=== PATIENT | male | born 1945 | race Caucasian/White ===

== ENCOUNTER 2020-02-17 16:26 | Inpatient (IN) ==
[2020-02-17 17:23] LABS: BASO# 0.01 X1000 (0.0-0.2); BASO% 0.1 % (0.0-0.8); EOS# 0.17 X1000 (0.0-0.7); EOS% 1.2 % (0.0-10.0); HEMATOCRIT 39.5 % (42.0-52.0); HEMOGLOBIN 13.2 g/dL (14.0-18.0); IMM GRAN# 0.04 X1000 (0.0-0.04); IMM GRAN% 0.3 % (0.0-0.5); LYMPH# 1.26 X1000 (1.2-3.4); LYMPH% 9.2 % (20.5-51.1); MCH 30.3 PG (27-31); MCHC 33.4 g/dL (33-37); MCV 90.8 FL (81-99); MONO# 0.64 X1000 (0.11-0.59); MONO% 4.7 % (1.7-9.3); MPV 11.4 FL (7.4-10.4); NEUT# 11.51 X1000 (1.4-6.5); NEUT% 84.5 % (42.2-75.2); PLT 157 X1000 (130-400); RBC 4.35 XMIL (4.7-6.1); RDW 14.9 % (11.5-14.5); WBC 13.63 X1000 (4.8-10.8)
[2020-02-17 17:26] LABS: INR 1.06; PROTIME 13.9 Seconds (11.0-16.0)
[2020-02-17 17:35] LABS: AGAP 12; ALB/GLOB RATIO 1.7; ALKALINE PHOSPHATASE 73 U/L (32-122); BUN 15 mg/dL (8-22); CHLORIDE 96 mmol/L (98-107); CK PROFILE 17 U/L (24-204); COSMO 274; CREATININE 0.9 mg/dL (0.7-1.2); ESTIMATED GFR > 60; GLUCOSE 229 mg/dL (70-104); GOT 12 U/L (10-34); GPT 13 U/L (10-44); POTASSIUM 3.8 mmol/L (3.5-5.1); SODIUM 133 mmol/L (136-145); TCO2 25 mmol/L (25-35); TOTAL BILIRUBIN 0.64 mg/dL (0.20-1.00); TOTAL PROTEIN 6.4 g/dL (6.3-8.3)
[2020-02-17] MEDS ORDERED: LEVAQUIN 750 MG/D5W 750 MG/150 ML IVPB IV ONE (18:04)
[2020-02-17] MEDS ORDERED: NS 1,000 ML IV ONE (18:04)
[2020-02-17 18:22] LABS: URINE SOURCE CLEAN CATCH
[2020-02-17 18:27] LABS: BILIRUBIN URINE NEGATIVE (NEGATIVE); BLOOD URINE NEGATIVE (NEGATIVE); COLOR YELLOW; GLUCOSE URINE NEGATIVE (NEGATIVE); KETONE URINE TRACE mg/dL (NEGATIVE); LEUKOCYTES URINE NEGATIVE (NEGATIVE); NITRITE URINE NEGATIVE (NEGATIVE); PROTEIN URINE 30 mg/dL (NEGATIVE); SP GRAVITY URINE 1.033; TURBIDITY URINE HAZY (CLEAR); UROBILINOGEN URINE 2 mg/dL (NORMAL)
[2020-02-17 18:32] LABS: UR EPITHELIAL CELLS <10 /HPF (<10); URINE BACTERIA NEGATIVE /HPF; URINE RBC <10 /HPF (<10); URINE WBC 20-40 /HPF (<10)
[2020-02-17 18:36] LABS: URINE CASTS NONE SEEN; URINE CRYSTALS CA OXALATE PRESENT; URINE YEAST NONE SEEN
--- NOTE | 2020-02-17 18:40 | Diag Imaging Result Doc PS360 ---
EXAM: CHEST-1 VIEW - 02/17/2020 HISTORY: SOB/CP TECHNIQUE: Portable chest one view COMPARISON: None. FINDINGS: Heart size appears mildly enlarged. There is perihilar infiltrate at the left upper lobe. There is mild nodularity at the lateral right upper lobe, but this may relate to old rib fracture deformities with adjacent pulmonary pleural scarring. The remainder the lungs appear grossly clear. There is an apparent tiny left pleural effusion. There is no evidence of pneumothorax. IMPRESSION: Mild cardiomegaly. Left upper lobe infiltrate compatible with pneumonia. Mild nodularity at lateral right upper lobe region, possibly related to scarring associated with old rib fracture deformities. Electronically signed by Allan Lewis 02/17/2020 6:37 PM
--- NOTE | 2020-02-17 19:30 | PROVIDER DOCUMENTATION ---
This chart was entered by Isidra Lorenz Scribe, acting as scribe for Dipak Moreno CRNP. HPI-General Adult - General Chief Complaint: Shortness of Breath Stated Complaint: CHEST PAIN X 2 DAYS SOB Time Seen by Provider: 02/17/20 16:55 Source: patient, EMS Allergies/Adverse Reactions: Patient Allergies Allergy/AdvReac Type Severity Reaction Status Date / Time Penicillins Allergy ANAPHYLAXIS Verified 02/17/20 17:04 - History of Present Illness -Gen Adult Nature of Presenting Problems: Pt is a 74 yom brought into the ED by EMS with c/o of SOB and sternal chest pain with fever that started 2 days ago. Pt went to [facility] and they called EMS. EMS reports that they were not told if a COVID-19 test was preformed. Pt's initial temperature with EMS was 99.4 and was 100.4 in ED triage. Pt states that he and his have been sheltering in place at home for 2 months but earlier this week they went driving by and waving to friends but stayed in the car. Pt reported that his has had to go to the Dr's office several times recently. Pt is hard of hearing. Pt states that nothing has tasted or smelled right for 2 days. Pt is alert and nontoxic in appearance. Location of Pain/Injury: reports: chest (sternal mild) Pain Radiation: reports: no radiation Quality of Pain: reports: dull Severity: reports: mild Onset/Duration: reports: abrupt, 2 days ago Timing: reports: still present, getting worse Context/Activities at Onset: reports: light activity Modifying Factors: worse with: movement Associated Symptoms: reports: chest pain (sternal), fever/chills, other (Pt re ports that nothing tastes or smells right.) Similar Symptoms Previously?: No Recently seen or treated by another doctor?: No Review of Systems - Adult - REVIEW OF SYSTEMS - ADULT Constitutional: reports: see HPI, fever Eyes: reports: no symptoms reported Ears, Nose, Mouth & Throat: reports: see HPI, hearing loss Cardiovascular: reports: see HPI, chest pain (sternal). denies: syncope Respiratory: reports: see HPI, shortness of breath Gastrointestinal: denies: abdominal pain, diarrhea, nausea, vomiting Genitourinary: reports: no symptoms reported Musculoskeletal: reports: no symptoms reported Integumentary: reports: no symptoms reported Neurological: reports: no symptoms reported Psychiatric: reports: no symptoms reported Endocrine: reports: no symptoms reported Hematologic/Lymphatic: reports: no symptoms reported Allergic/Immunologic: reports: no symptoms reported All Other Systems: Reviewed and Negative Past History - Adult - PAST MEDICAL HISTORY-ADULT Review of Records: reports: Old Records Reviewed, Nursing Assessment Review, Medications Reviewed, Social history reviewed & non-contributory. Major Childhood Illnesses: reports: denies history Cardiovascular: reports: HTN Respiratory: reports: denies history Gastrointestinal: reports: denies history Obstetrical/Gynecological: reports: denies history Genitourinary: reports: denies history Musculoskeletal: reports: denies history Neurological: reports: denies history Endocrine/Immune: reports: thyroid disorder Other Conditions: reports: denies history - IMMUNIZATION STATUS Childhood Immunizations: See Nurse Assessment Flu Vaccine: See Nurse Assessment - FAMILY HISTORY Family History: reviewed, not pertinent - SOCIAL HISTORY Smoking: denies Substance Use: denies Living Situation: family () Physical Exam-General - PHYSICAL EXAM-ADULT Initial Vital Signs Reviewed: Yes (Temp 99.8; HR 100; Resp 26; O2 94 RA) - CONSTITUTIONAL General Appearance: alert, mild distress - EYES Eyes: PERRL/EOMI, pink conjunctivae - HEAD, EARS, NOSE, MOUTH & THROAT HENMT: normocephalic/atraumatic, moist mucous membranes, other (Alcohol swab was presented pt stated it did not smell like alcohol but something bad.) - NECK Neck: non-tender, full range of motion, supple - RESPIRATORY Respiratory: decreased breath sounds (left), wheezing (Right Lower Lobe mild) - CARDIOVASCULAR Cardiovascular: normal peripheral pulses, tachycardia - GASTROINTESTINAL (ABDOMEN) Abdominal Exam: normal bowel sounds, non tender, soft - LYMPHATIC Lymphatic: no adenopathy - MUSCULOSKELETAL Back Exam: normal inspection, no CVA tenderness, no vertebral tenderness Extremity: normal range of motion, non-tender, normal gait - SKIN Integumentary: normal turgor, warm/dry - NEUROLOGIC Neurologic: grossly normal - PSYCHIATRIC Psych/Mental Status: normal thought content, normal thought process, oriented x 3 Progress - PLAN OF CARE/RESULTS Progress/Plan/Lab Results: Vital Signs - 8 hr 02/17/20 17:01 Temperature 99.8 F H Pulse Rate 100 H Respiratory Rate 26 H Blood Pressure 129/67 O2 Sat by Pulse Oximetry 94 L 02/17/20 16:54 Influenza Screen - Final Nasopharyngeal Laboratory Results - last 24 hr 02/17/20 02/17/20 02/17/20 16:51 16:51 16:51 WBC RBC Hgb Hct MCV MCH MCHC RDW Std Deviation Plt Count MPV Immature Gran % (Auto) Neut % (Auto) Lymph % (Auto) [place] % (Auto) Eos % (Auto) Baso % (Auto) Immature Gran # (Auto) Neut # (Auto) Lymph # (Auto) [place] # (Auto) Eos # (Auto) Baso # (Auto) PT INR PTT (Actin FS) Sodium 133 L Potassium 3.8 Chloride 96 L Carbon Dioxide 25 Anion Gap 12 BUN 15 Creatinine 0.9 Estimated GFR/1.73 m2 > 60 BUN/Creatinine Ratio 17 Glucose 229 H Calculated Osmolality 274 Calcium 9.0 Total Bilirubin 0.64 AST 12 ALT 13 Alkaline Phosphatase 73 Creatine Kinase 17 L Troponin T High Sens 8 Total Protein 6.4 Albumin 4.0 Globulin 2.4 Albumin/Globulin Ratio 1.7 Plasma Lactate 2.1 02/17/20 02/17/20 16:51 16:51 WBC 13.63 H RBC 4.35 L Hgb 13.2 L Hct 39.5 L MCV 90.8 MCH 30.3 MCHC 33.4 RDW Std Deviation 14.9 H Plt Count 157 MPV 11.4 H Immature Gran % (Auto) 0.3 Neut % (Auto) 84.5 H Lymph % (Auto) 9.2 L Zapata % (Auto) 4.7 Eos % (Auto) 1.2 Baso % (Auto) 0.1 Immature Gran # (Auto) 0.04 Neut # (Auto) 11.51 H Lymph # (Auto) 1.26 [place]ata # (Auto) 0.64 H Eos # (Auto) 0.17 Baso # (Auto) 0.01 PT 13.9 INR 1.06 PTT (Actin FS) 33.0 Sodium Potassium Chloride Carbon Dioxide Anion Gap BUN Creatinine Estimated GFR/1.73 m2 BUN/Creatinine Ratio Glucose Calculated Osmolality Calcium Total Bilirubin AST ALT Alkaline Phosphatase Creatine Kinase Troponin T High Sens Total Protein Albumin Globulin Albumin/Globulin Ratio Plasma Lactate Orders Category Date Time Status Cardiac Monitoring NOW Care 02/17/20 17:04 Active IV Insertion NOW Care 02/17/20 17:04 Active NEWS Score >or=5:Order NEWS Bundle S.O. NOW Care 02/17/20 17:03 Active Notify Provider of NEWS Score NOW Care 02/17/20 17:04 Active CHEST-1 VIEW [RAD] Stat Exams 02/17/20 17:04 Ordered BLOOD CULTURE [BLDCUL] Stat Lab 02/17/20 17:02 Received CBC WITH DIFF [HEME] Stat Lab 02/17/20 16:51 Completed CK PROFILE [SP CHEM] Stat Lab 02/17/20 16:51 Completed COMPREHENSIVE METABOLIC PANEL [CHEM] Stat Lab 02/17/20 16:51 Completed INFLUENZA SCREEN A/B Stat Lab 02/17/20 16:54 Completed LACTATE, PLASMA [CHEM] Lab 02/17/20 20:15 Uncollected LACTATE, PLASMA [CHEM] Lab 02/17/20 23:15 Uncollected LACTATE, PLASMA [CHEM] Q3H Lab 02/17/20 16:51 Completed PROTIME WITH INR [COAG] Stat Lab 02/17/20 16:51 Completed PTT [COAG] Stat Lab 02/17/20 16:51 Completed TROPONIN T HIGH SENSITIVITY Stat Lab 02/17/20 16:51 Completed URINALYSIS W/POSS RFLX CULT [URINALYSIS] Stat Lab 02/17/20 17:04 Uncollected O2 Per Protocol Stat Oth 02/17/20 17:04 Active Result Diagrams: 02/17/20 16:51 02/17/20 16:51 - REASSESSMENT Reassessment #1 Time Reassessed: 18:46 Status: unchanged - EKG 1 Time of EKG reading by physician:: 17:05 EKG Read and Signed by:: Brian Fernandez EKG Interpretation (*Must complete 3 of following elements*): Abnormal Rate: 98 Rhythm: NSR [place]: left (deviation) QRS: LVH (moderate voltage criteria, may be normal variant) Comments: Nonspecific T wave abnormality - XRAY 1 XRAY Study: Chest Impression: See EMR Report - CONSULTS/PCP/HOSPITALIST Notification #1 *Consult/PCP/Hospitalist*: Dr Crowe Time Discussed: 19:28 Reason/Comments: Pneumonia, hypoxia Consult Disposition: Admit Departure - Departure Date of Disposition Decision: 02/17/20 Time of Disposition Decision: 19:28 DIAGNOSIS: Acute pneumonia, Leukocytosis, Fever, UTI (urinary tract infection) Disposition: ADMITTED INPATIENT 09 Certified Medical Emergency: Emergent Condition: Critical Additional Instructions: ED Follow Up Instructions: You have been treated by a care provider in the Emergency Department. These instructions are being provided to you so you can have an understanding of how to care for yourself upon discharge. Upon discharge from the Emergency Department, you are responsible for making arrangements for follow-up care by a physician of your choice. Take all prescribed medications as directed. Return to the Emergency Department immediately for any new or worsening symptoms. You may call the Physician Referral phone number at [phone] to obtain a list of Physicians who are taking new patients. Referrals and Follow-Ups: None,PCP [Primary Care Provider] - - Critical Care Note This patient required my direct & personal management of CC.: No Attestation - Physician/ ASHLEY Attestation Patient care was provided by Advanced Practice Provider:: Yes Advanced Practice Provider:: Dipak Moreno Advanced Practice Provider documentation review:: The Mid-level provider documentation, treatment plan and medical decision making was reviewed by the physician who agrees with all treatment and medical decision making by the MLP. The physician spent face to face time with patient:: Yes Advanced Practice Provider documentation review:: Supervising physician onsite and consulted in the evaluation and care of this patient. The physician did have a face to face encounter with the patient. This chart was documented by the indicated scribe, (Isidra Lorenz, Paty) a nd accurately reflects the services I performed and decisions made by me, Dipak Moreno CRNP, as attested by the provider's signature.
[2020-02-17 19:57] LABS: HEMOGLOBIN A1C 6.2 % (4.8-6.0)
[2020-02-17] MEDS: TYLENOL PO PRN (22:16)
[2020-02-17] MEDS: ZITHROMAX 500 MG/NS 500 MG/250 ML IVPB INJ SCH (22:16)
[2020-02-17] MEDS: LOVENOX SUBQ SCH (22:16)
[2020-02-17] MEDS: NS 1,000 ML IV SCH (22:16)
[2020-02-17] MEDS: AZACTAM 1 GM in NS 50 ML IV SCH (23:29)
[2020-02-18 06:27] LABS: BASO# 0.01 X1000 (0.0-0.2); BASO% 0.1 % (0.0-0.8); EOS# 0.09 X1000 (0.0-0.7); EOS% 0.9 % (0.0-10.0); HEMATOCRIT 39.1 % (42.0-52.0); HEMOGLOBIN 14.1 g/dL (14.0-18.0); IMM GRAN# 0.02 X1000 (0.0-0.04); IMM GRAN% 0.2 % (0.0-0.5); LYMPH# 1.72 X1000 (1.2-3.4); LYMPH% 17.4 % (20.5-51.1); MCH 33.6 PG (27-31); MCHC 36.1 g/dL (33-37); MCV 93.1 FL (81-99); MONO# 0.51 X1000 (0.11-0.59); MONO% 5.2 % (1.7-9.3); MPV 12.3 FL (7.4-10.4); NEUT# 7.51 X1000 (1.4-6.5); NEUT% 76.2 % (42.2-75.2); PLT 163 X1000 (130-400); RDW 15.4 % (11.5-14.5); WBC 9.86 X1000 (4.8-10.8)
[2020-02-18 06:34] LABS: AGAP 19; BUN 11 mg/dL (8-22); CALCIUM 8.9 mg/dL (8.8-10.2); CHLORIDE 100 mmol/L (98-107); COSMO 277; CREATININE 0.8 mg/dL (0.7-1.2); ESTIMATED GFR > 60; GLUCOSE 165 mg/dL (70-104); POTASSIUM 3.6 mmol/L (3.5-5.1); SODIUM 137 mmol/L (136-145); TCO2 18 mmol/L (25-35)
[2020-02-18 07:13] LABS: BANDS 2 % (0-1)
[2020-02-18 07:14] LABS: LYMPHS 15 % (21-51); SEGS 83 % (42-75)
[2020-02-18 07:15] LABS: HYPOCHROM 1+
--- NOTE | 2020-02-18 08:36 | HISTORY AND PHYSICAL ---
CHIEF COMPLAINT: Shortness of breath and dry cough. HISTORY OF PRESENT ILLNESS: This is a 74-year-old male who came into the Emergency Room with the complaint of sternal chest pain and shortness of breath, the pain was with inspiration, and fever and chills that started 2 days ago. He went to [facility] but they called the EMS and sent him to the Emergency Room. He stated that his nose was swabbed at the Urgent Care, however, he was unsure if they did COVID testing. He and his had been sheltering in place. Apparently earlier this week they went driving through the neighborhood waving at friends in the car but again stayed in the car. I believe the has had several doctor's office visits recently and the patient is fairly hard of hearing. He also states that he has not tasted or smelled anything right for the last 2 days. Flu swab was negative in the Emergency Room. They did COVID-19 testing which is pending and blood cultures have been sent. A chest x-ray showed a left upper lobe infiltrate and mild cardiomegaly. He will be placed inpatient and treated for pneumonia. PAST MEDICAL HISTORY: Hypertension, hyperlipidemia, and hypothyroidism. PREVIOUS SURGICAL HISTORY: Multiple back surgeries, left knee surgery, and bilateral elbow surgery. SOCIAL HISTORY: Former smoker. No tobacco. No alcohol. He lives with family. FAMILY HISTORY: The patient denied chronic illnesses in the family. Again, please note he was very hard of hearing and I think this was compounded by my wearing a mask. REVIEW OF SYSTEMS: A 14 point review of systems was conducted with the patient and pertinent positives are listed above in the HPI. All other systems were reviewed and found to be negative. ALLERGIES: Penicillin causing anaphylaxis. HOME MEDICATIONS: Lipitor 80 mg p.o. nightly at bedtime, Zyrtec 10 mg p.o. daily, folic acid 1 mg p.o. daily, levothyroxine 125 mcg p.o. daily, lisinopril 20 mg p.o. daily, melatonin 5 mg p.o. nightly at bedtime, Protonix 40 mg p.o. daily, Seroquel 100 mg 4 times a day, Zoloft 100 mg p.o. b.i.d., temazepam 15 mg p.o. daily, and trazodone 100 mg p.o. b.i.d.. PHYSICAL EXAMINATION: VITAL SIGNS: Temp is 100.2, pulse 95, respirations 18, blood pressure 145/63, and oxygen saturation 95% on 2 L nasal cannula. GENERAL: A 74-year-old male lying in the E.R. stretcher. He is alert and oriented times 3 and in no acute distress. HEENT: Head is atraumatic, normocephalic. Pupils are equal, round, and reactive to light. Extraocular eye movements intact. Sclerae are anicteric. Conjunctivae are mildly pale. Oral mucosa is dry. NECK: Supple. No JVD. No thyromegaly. Trachea is midline. No cervical lymphadenopathy. CARDIAC: S1 and S2 are appreciated. No murmurs, gallops, or rubs. LUNGS: Decreased bilaterally, right greater than left. Mild wheezing that clears with cough in the right upper lobe. Symmetric rise and fall with respirations. ABDOMEN: Soft, nondistended, and nontender. Bowel sounds are present in all 4 quadrants, normoactive. No pulsatile mass. No organomegaly. EXTREMITIES: No clubbing, cyanosis, or edema. Pedal pulses are 2+ bilaterally. GENITOURINARY: No bladder distention. The patient voids. Otherwise, deferred. NEUROLOGICAL: Alert and oriented times 3. No focal motor deficits. Otherwise, nonfocal examination. LABORATORY DATA: WBC is 13.63, hemoglobin 13.2, hematocrit 39.5, and platelet count 157. Sodium is 133, potassium 3.8, chloride 96, carbon dioxide 25, BUN 15, creatinine 0.9, and glucose 229. Urine unremarkable. Chest x-ray: Mild cardiomegaly. Left upper lobe infiltrate. ASSESSMENT: 1. Community-acquired pneumonia. 2. Leukocytosis. 3. Hypertension. 4. Hyperlipidemia. 5. Hyperglycemia, likely secondary to steroid treatment. 6. Mild fluid volume depletion. PLAN: Admit the patient to the medical floor. COVID testing has been initiated. We will keep on COVID precautions until it is ruled out. Place the patient on Azactam and azithromycin. Blood cultures are pending. Continue home antihypertensives. We will continue his Zoloft and Seroquel. Check TSH. Continue Synthroid. Continue statin. Further recommendations per the patient's clinical course. Dictated by COLIN Mcguire for Darren Crowe MD I have performed a face to face diagnostic evaluation. Labs/xrays-reviewed. Exam- Chest- rhonchi, CV- regular, Abd- soft. A/P- Pneumonia- Admit, check blood cultures, IV ABX. Dr. Crowe. cc: COLIN Mcguire MD [facility]
[2020-02-18] MEDS: AZACTAM 1 GM in NS 50 ML IV SCH ×2 (08:54→16:22)
[2020-02-18] MEDS: SYNTHROID PO SCH (08:55)
[2020-02-18] MEDS: FOLIC ACID PO SCH (08:55)
[2020-02-18] MEDS: DESYREL PO SCH ×2 (08:55→20:30)
[2020-02-18] MEDS: SEROQUEL PO SCH ×4 (08:55→20:29)
[2020-02-18] MEDS: PRINIVIL PO SCH (08:56)
[2020-02-18] MEDS: ZOLOFT PO SCH ×2 (08:56→20:29)
[2020-02-18] MEDS: PRILOSEC PO SCH (08:56)
[2020-02-18] MEDS ORDERED: RESTORIL PO SCH (09:00)
[2020-02-18] MEDS: ZYRTEC PO SCH (12:49)
[2020-02-18] MEDS: NS 1,000 ML IV SCH (12:49)
[2020-02-18] MEDS: TYLENOL PO PRN (16:22)
[2020-02-18] MEDS ORDERED: LR 1,000 ML IV ONE (17:56)
[2020-02-18] MEDS ORDERED: VANCOMYCIN IV PER PHARMACY MISC SCH (18:00)
--- NOTE | 2020-02-18 18:20 | SEPSIS: TISSUE PERFUSION ASSMT ---
Sepsis: Tissue Perfusion Assmt - Physical Exam Assessment Date: 02/18/20 Time Assessment Initialized: 18:00 Vital Signs: Last Vital Signs Temp 102.6 F H 02/18/20 16:27 Pulse 91 H 02/18/20 16:27 Resp 28 H 02/18/20 16:27 BP 131/60 02/18/20 16:27 Pulse Ox 95 02/18/20 16:27 Height 5 ft 10 in Weight 99.79 kg Lung Sounds: lungs clear, crackles Heart Sounds: Regular Capillary Refill Time: Less Than 2 Seconds Peripheral Pulse Evaluation: radial (R): 2+, radial (L): 2+, dorsalis-pedis (R): 2+, dorsalis-pedis (L): 2+, posterior tibialis (R): 2+, posterior tibialis (L): 2+ Skin Exam: flushed - Alternative Fluid Bolus Bolus Option: Alternative Fluid Resuscitation Bolus for morbidly obese patients with a BMI >30, Refer to [facility] [place] Body Weight Chart for Reference. Is patient's BMI >30?: Yes - Impression Impression: Tissue Perfusion Adequate (Give 1 more litre of IV fluids. He is diaphoretic because of fever. Add Vancomycin. Get inflammatory markers.)
[2020-02-18] MEDS ORDERED: ASPIRIN PO STA (18:24)
--- NOTE | 2020-02-18 18:37 | EKG Report ---
Test Performed on : 02/18/2020 6:36:09 PM Test Reason : CP Blood Pressure : / mmHG Vent. Rate : 083 BPM Atrial Rate : 083 BPM P-R Int : 176 ms QRS Dur : 088 ms QT Int : 366 ms P-R-T Axes : 042 -22 019 degrees QTc Int : 430 ms Normal sinus rhythm. Nonspecific T wave abnormality Abnormal ECG No previous ECGs available Confirmed by Cornelio FARIAS, Tino Gutierrez ([id number]) on 02/20/2020 4:21:44 PM
--- NOTE | 2020-02-18 19:08 | PROGRESS NOTE ---
DATE: 02/18/2020 INTERVAL HISTORY: Mr. Ballard was admitted for bilateral community-acquired pneumonia. He remained febrile. I called his to get relevant historical data. SUBJECTIVE: Mr. Ballard appears diaphoretic. He complains of some chest discomfort in the center of the chest when he takes a deep breath. He denies any shortness of breath. He states he has occasional cough without any sputum. He has significant hearing impairment, so a lot of history was obtained from his on the phone. MEDICATIONS: Currently he is on acetaminophen, atorvastatin, azithromycin, aztreonam, cetirizine, enoxaparin, folic acid, levothyroxine, lisinopril, melatonin, omeprazole, quetiapine, sertraline, trazodone and temazepam. I have added intravenous vancomycin and lactated Ringer bolus. OBJECTIVE: Vital signs: Temperature 102.6 degrees, pulse 91, respiratory rate 28, blood pressure 130/60. He is saturating 95% on 2 L nasal cannula. On physical examination he is diaphoretic, appears pink. No cyanosis, clubbing or icterus. He has diminished air entry with inspiratory crackles in bilateral infrascapular regions. S1, S2 normal. Not tachycardic. No murmur, rub or gallop. Abdomen is obese, soft, nontender. Active bowel sounds. No lower extremity edema. He is alert. He has significant hearing impairment. He was oriented to place and person, and partially with the situation. LABORATORY DATA: Suggest WBC 9.8, hemoglobin 14.1, platelets 163,000. BUN 11, creatinine 0.8, blood glucose 125. Microbiology: Blood culture, urine culture, influenza screen so far have been negative. ASSESSMENT AND PLAN: 1. Sepsis due to bilateral lower lobe pneumonia, likely community-acquired. Continue intravenous aztreonam and azithromycin. Add intravenous vancomycin, considering he has persistent fever despite 24 hours of antibiotics. Follow up urine streptococcus, legionella antigen, blood culture results. Follow up COVID-19 test results. According to , he has not had any exposure. 2. Pleuritic chest pain. This could be in the setting of pneumonia. I did not see any electrocardiogram done. I will order a stat electrocardiogram as well as troponin. He denies known history of coronary artery disease, and on bedside telemetry there are no ST elevations. I will also give him a stat dose of aspirin as I await electrocardiogram. 3. History of posttraumatic stress disorder. Continue home sertraline, temazepam, trazodone, quetiapine and melatonin at nighttime. 4. Hyperlipidemia. Continue home atorvastatin. 5. Essential hypertension. Continue home lisinopril. 6. Others. Continue levothyroxine for hypothyroidism and enoxaparin for deep venous thrombosis prophylaxis. I will give him additional intravenous fluid boluses and continue him on intravenous normal saline. 7. Disposition: Continue to monitor the patient in [address] [place] [address]. I discussed with the nurse about my suspicion of COVID-19 and need for new antibiotics and bolus. All of her questions were answered. I called the patient's , discussed with her about the patient's clinical condition, pneumonia, COVID-19 pending results, and all of her questions were answered. Thirty-five minutes were spent in taking care of this patient. cc: Farshad Hammond MD
[2020-02-18] MEDS ORDERED: VANCOMYCIN 2,250 MG in NS 500 ML IV ONE (20:00)
[2020-02-18] MEDS: MELATONIN PO SCH (20:30)
[2020-02-18] MEDS: LIPITOR PO SCH (20:30)
[2020-02-18] MEDS: LOVENOX SUBQ SCH (20:32)
[2020-02-18] MEDS: ZITHROMAX 500 MG/NS 500 MG/250 ML IVPB INJ SCH (22:01)
[2020-02-19] MEDS: AZACTAM 1 GM in NS 50 ML IV SCH ×3 (00:08→16:08)
[2020-02-19] MEDS: SYNTHROID PO SCH ×2 (05:52→06:09)
[2020-02-19] MEDS: PRILOSEC PO SCH ×2 (05:52→06:09)
[2020-02-19 05:57] LABS: BASO# 0.01 X1000 (0.0-0.2); BASO% 0.2 % (0.0-0.8); EOS# 0.11 X1000 (0.0-0.7); EOS% 1.7 % (0.0-10.0); HEMATOCRIT 33.4 % (42.0-52.0); HEMOGLOBIN 11.2 g/dL (14.0-18.0); IMM GRAN# 0.04 X1000 (0.0-0.04); IMM GRAN% 0.6 % (0.0-0.5); LYMPH# 1.11 X1000 (1.2-3.4); LYMPH% 16.9 % (20.5-51.1); MCH 30.4 PG (27-31); MCHC 33.5 g/dL (33-37); MCV 90.8 FL (81-99); MONO# 0.49 X1000 (0.11-0.59); MONO% 7.5 % (1.7-9.3); MPV 11.9 FL (7.4-10.4); NEUT# 4.81 X1000 (1.4-6.5); NEUT% 73.1 % (42.2-75.2); PLT 132 X1000 (130-400); RBC 3.68 XMIL (4.7-6.1); RDW 14.9 % (11.5-14.5); WBC 6.57 X1000 (4.8-10.8)
[2020-02-19 06:25] LABS: AGAP 9; BUN 10 mg/dL (8-22); CALCIUM 7.9 mg/dL (8.8-10.2); CHLORIDE 103 mmol/L (98-107); COSMO 268; CREATININE 0.7 mg/dL (0.7-1.2); ESTIMATED GFR > 60; GLUCOSE 115 mg/dL (70-104); POTASSIUM 3.3 mmol/L (3.5-5.1); SODIUM 134 mmol/L (136-145); TCO2 22 mmol/L (25-35)
[2020-02-19] MEDS: PRINIVIL PO SCH (08:22)
[2020-02-19] MEDS: SEROQUEL PO SCH ×4 (08:22→20:00)
[2020-02-19] MEDS: TYLENOL PO PRN (08:22)
[2020-02-19] MEDS: ZOLOFT PO SCH ×2 (08:22→20:00)
[2020-02-19] MEDS: FOLIC ACID PO SCH (08:22)
[2020-02-19] MEDS: DESYREL PO SCH ×2 (08:22→20:00)
[2020-02-19] MEDS: ZYRTEC PO SCH (08:22)
[2020-02-19] MEDS: NS 1,000 ML IV SCH (12:01)
[2020-02-19] MEDS ORDERED: KLOR-CON PO SCH (13:45)
--- NOTE | 2020-02-19 15:27 | PROGRESS NOTE ---
DATE: 02/19/2020 INTERVAL HISTORY: He did not have any more fever episode after yesterday evening. His EKG had normal sinus rhythm. His WBC count has been normalizing. His inflammatory markers were elevated. SUBJECTIVE: Mr. Ballard appears much more awake and alert. He was trying to reposition himself in the bed. He denies any chest pain. He denies shortness of breath at rest. His cough is better. He was able to eat. REVIEW OF SYSTEMS: Negative for nausea, vomiting, negative for abdominal pain. He said he had a bowel movement. MEDICATION LIST: Is currently on acetaminophen, atorvastatin, azithromycin, aztreonam, cetirizine, folic acid, levothyroxine, lisinopril, melatonin, omeprazole, potassium chloride, quetiapine, sertraline, temazepam, trazodone, vancomycin. VITALS: Temperature 97.6 degrees, pulse 84, respiratory 18, blood pressure 120/55, saturating 95% on 2 L nasal cannula. PHYSICAL EXAMINATION: Not in acute distress. Oral cavity is moist. Air entry bilateral equal, no wheeze or rhonchi. He has crackles about infrascapular region. S1, S2 normal, not tachycardic. No murmur or gallop.Abdomen: Obese, soft, nontender. Active bowel sounds. No lower extremity edema. He is alert and oriented x3. He has hearing impairment. LABS: WBC 6.5, hemoglobin 11.2, platelet 132,000. Potassium of 3.3 and his hypokalemia is currently being repleted, BUN 10, creatinine 0.7, blood sugar 129, his ferritin was 557, C- reactive protein was 216, troponin T was 9. His ESR was 77. No positive culture data. COVID test is pending. ASSESSMENT AND PLAN: 1. Sepsis due to bilateral lower lobe pneumonia likely community-acquired. Continue intravenous azithromycin, aztreonam and vancomycin. Follow up urine Streptococcus Legionella antigen as well as COVID-19 testing. He has not been able to make sputum. Blood cultures have been negative. 2. Pleuritic chest pain likely because of his pneumonia. His troponins have been unremarkable. EKG did not have acute coronary syndrome related changes. His chest pain has resolved. I will continue him atorvastatin for hyperlipidemia and lisinopril for essential hypertension. 3. History of posttraumatic stress disorder. Continue home sertraline, temazepam, trazodone, quetiapine and melatonin. 4. Others. Continue levothyroxine for hypothyroidism, enoxaparin for deep venous thrombosis prophylaxis and I will stop his intravenous fluid since he has been able to take 25% of his meals at least and he has been almost 4 L positive since admission. DISPOSITION: Continue monitor patient in airborne and contact isolation as we await COVID-19 testing. Plan of care discussed with Mr. Ballard. He was allowed to ask questions, his questions have been answered. cc: Farshad Hammond MD [facility]
[2020-02-19] MEDS: MELATONIN PO SCH (20:00)
[2020-02-19] MEDS: LOVENOX SUBQ SCH ×2 (20:00→22:50)
[2020-02-19] MEDS: ZITHROMAX 500 MG/NS 500 MG/250 ML IVPB INJ SCH ×2 (20:00→22:51)
[2020-02-19] MEDS: LIPITOR PO SCH (20:00)
[2020-02-19] MEDS: VANCOMYCIN 2 GM in NS 500 ML IV SCH (20:01)
[2020-02-19] MEDS: RESTORIL PO SCH (20:02)
[2020-02-20] MEDS: AZACTAM 1 GM in NS 50 ML IV SCH ×5 (01:13→23:23)
[2020-02-20] MEDS: PRILOSEC PO SCH (06:31)
[2020-02-20] MEDS: SYNTHROID PO SCH (06:31)
--- NOTE | 2020-02-20 07:43 | EKG Report ---
Test Performed on : 02/17/2020 4:53:11 PM Test Reason : ED. NO EKG ORDER FOR MUSE Blood Pressure : / mmHG Vent. Rate : 098 BPM Atrial Rate : 098 BPM P-R Int : 174 ms QRS Dur : 096 ms QT Int : 350 ms P-R-T Axes : 062 -33 070 degrees QTc Int : 446 ms Normal sinus rhythm. Left axis deviation Moderate voltage criteria for LVH, may be normal variant Nonspecific T wave abnormality Abnormal ECG No previous ECGs available Unconfirmed Result
[2020-02-20 07:51] LABS: AGAP 12; BUN 10 mg/dL (8-22); CHLORIDE 107 mmol/L (98-107); COSMO 280; CREATININE 0.6 mg/dL (0.7-1.2); ESTIMATED GFR > 60; GLUCOSE 119 mg/dL (70-104); POTASSIUM 3.5 mmol/L (3.5-5.1); SODIUM 140 mmol/L (136-145); TCO2 21 mmol/L (25-35)
[2020-02-20] MEDS: DESYREL PO SCH ×2 (10:30→21:48)
[2020-02-20] MEDS: ZOLOFT PO SCH ×2 (10:30→21:48)
[2020-02-20] MEDS: PRINIVIL PO SCH (10:31)
[2020-02-20] MEDS: FOLIC ACID PO SCH (10:31)
[2020-02-20] MEDS: SEROQUEL PO SCH ×4 (10:31→21:48)
[2020-02-20] MEDS: ZYRTEC PO SCH (10:31)
[2020-02-20] MEDS: MIRALAX PO SCH ×2 (15:33→21:52)
--- NOTE | 2020-02-20 16:11 | PROGRESS NOTE ---
DATE: 02/20/2020 INTERVAL HISTORY: His Covid-19 test results came back negative. Mr. Ballard continued to require 2 L nasal cannula oxygen when he is not on any oxygenation. He is not on any home oxygen. SUBJECTIVE: Mr. Ballard is feeling the same. He denies any chest pain or shortness of breath. He is occasionally coughing but he has not been able to bring up any sputum. He is asking me when he could be discharged. VITALS: Temperature 98.3 degrees, pulse 80, respiratory rate 22, blood pressure 134/65, he is saturating 93% on 2 L nasal cannula. PHYSICAL EXAMINATION: He is not in acute distress. However, when he tries to reposition himself in the bed, he starts becoming tachypneic. Oral cavity is moist. No pallor, cyanosis, clubbing, or icterus. Lungs: Air entry decreased significantly in the left infrascapular region with inspiratory crackles. Adequate air entry without any crackles on the right hemithorax. No wheeze or rhonchi. Cardiovascular: S1, S2 normal. Not tachycardic. No murmur, rub, or gallop. Abdomen: Obese, soft, nontender. Active bowel sounds. No lower extremity edema. He is alert and oriented x3. He has significant hearing impairment. LABS: No CBC. BMP has a BUN of 10, creatinine 0.6. His magnesium is 1.8. No positive microbiological data. His Covid-19 test has been negative. ASSESSMENT AND PLAN: 1. Sepsis and acute hypoxic respiratory failure due to bilateral lower lobe pneumonia, likely community-acquired. Continue intravenous azithromycin, aztreonam, and vancomycin. His blood culture and Covid-19 test have been negative. Follow up streptococcal urine antigen and a repeat chest x-ray tomorrow morning. 2. Pleuritic chest pain because of his pneumonia, now improving. His troponins and EKG were largely unremarkable and his chest pain has resolved. I will continue atorvastatin for hyperlipidemia and lisinopril for essential hypertension. 3. History of posttraumatic stress disorder. Continue home sertraline, temazepam, trazodone, quetiapine, and melatonin. 4. Others. Continue levothyroxine for hypothyroidism; enoxaparin for deep venous thrombosis prophylaxis; physical therapy for mobility; add MiraLAX for constipation. 5. Disposition. Pending chest x-ray and clinical improvement. He continues to require oxygen and becomes a little tachypneic on mild exertion so I decided to keep him in the hospital for at least 24 hours for intravenous antibiotics. I will order PT evaluation. Plan of care discussed with Mr. Ballard. He was allowed to ask questions. His questions have been answered. cc: Farshad Hammond MD MTDD
[2020-02-20] MEDS: VANCOMYCIN 2 GM in NS 500 ML IV SCH (19:43)
[2020-02-20] MEDS: MELATONIN PO SCH (21:48)
[2020-02-20] MEDS: LIPITOR PO SCH (21:48)
[2020-02-20] MEDS: RESTORIL PO SCH (21:48)
[2020-02-20] MEDS: LOVENOX SUBQ SCH (21:48)
[2020-02-20] MEDS: ZITHROMAX 500 MG/NS 500 MG/250 ML IVPB INJ SCH (21:48)
[2020-02-21] MEDS: SYNTHROID PO SCH (06:16)
[2020-02-21] MEDS: PRILOSEC PO SCH (06:16)
[2020-02-21 07:06] LABS: AGAP 12; BUN 11 mg/dL (8-22); CALCIUM 8.1 mg/dL (8.8-10.2); CHLORIDE 105 mmol/L (98-107); COSMO 279; CREATININE 0.6 mg/dL (0.7-1.2); ESTIMATED GFR > 60; GLUCOSE 130 mg/dL (70-104); POTASSIUM 3.5 mmol/L (3.5-5.1); SODIUM 139 mmol/L (136-145); TCO2 22 mmol/L (25-35)
--- NOTE | 2020-02-21 07:39 | Diag Imaging Result Doc PS360 ---
EXAM: CHEST-2 VIEWS HISTORY: Follow up Pneumonia TECHNIQUE: Two views COMPARISON: 02/17/2020 FINDINGS: The lungs are well expanded. The heart is not enlarged. The vessels are not distended. There are dense left-sided infiltrates. Trace pleural effusions. IMPRESSION: Worsening left-sided pneumonia Electronically signed by Kendrick Nielsen 02/21/2020 7:37 AM
[2020-02-21] MEDS: AZACTAM 1 GM in NS 50 ML IV SCH ×2 (08:24→16:46)
[2020-02-21] MEDS: ZOLOFT PO SCH ×2 (08:26→21:55)
[2020-02-21] MEDS: ZYRTEC PO SCH (08:26)
[2020-02-21] MEDS: DESYREL PO SCH ×2 (08:26→21:55)
[2020-02-21] MEDS: FOLIC ACID PO SCH (08:27)
[2020-02-21] MEDS: SEROQUEL PO SCH ×4 (08:27→21:55)
[2020-02-21] MEDS: PRINIVIL PO SCH (08:27)
[2020-02-21] MEDS: MIRALAX PO SCH ×2 (08:27→21:56)
[2020-02-21] MEDS ORDERED: CALMOSEPTINE OINTMENT TOP PRN (11:05)
--- NOTE | 2020-02-21 17:07 | Diag Imaging Result Doc PS360 ---
ABDOMEN FLAT/UPRIGHT - 02/21/2020 INDICATION: constipation COMPARISON: None FINDINGS: There is a nonobstructive bowel gas pattern. No free air or abdominal calcifications. There is no constipation. There are fusion rods in the lumbar spine. IMPRESSION: No acute disease. Electronically signed by Bar Moses 02/21/2020 5:05 PM
[2020-02-21] MEDS: ZITHROMAX PO SCH (19:46)
[2020-02-21] MEDS: LIPITOR PO SCH (21:55)
[2020-02-21] MEDS: MELATONIN PO SCH (21:55)
[2020-02-21] MEDS: RESTORIL PO SCH (21:55)
[2020-02-21] MEDS: LOVENOX SUBQ SCH (21:56)
[2020-02-21] MEDS: VANCOMYCIN 2 GM in NS 500 ML IV SCH (21:57)
[2020-02-22] MEDS: AZACTAM 1 GM in NS 50 ML IV SCH ×3 (00:57→16:11)
--- NOTE | 2020-02-22 03:42 | PROGRESS NOTE ---
DATE: 02/21/2020 SUBJECTIVE: The patient is sitting up in bed. He states that he feels much better. He has normal oxygen saturations on room air. He states that he had a bowel movement earlier today. OBJECTIVE: Vital Signs: Temperature 98.7 degrees, blood pressure 141/61, heart rate 86, respirations 20, O2 saturation 93% on room air. General: This is a chronically ill-appearing, elderly male, lying in bed in no acute distress. Heart: S1, S2 normal. Lungs: Clear to auscultation bilaterally. Abdomen: Positive bowel sounds. Soft, nontender, nondistended. Extremities: No edema, no cyanosis. Neurologic: The patient is alert and oriented x3. LABS: Sodium 139, potassium 3.5, chloride 105, CO2 22, BUN 11, creatinine 0.6, glucose 130, calcium 8.1. Chest x-ray shows worsened left-sided pneumonia. ASSESSMENT AND PLAN: 1. Acute hypoxemic respiratory failure. Improved. The patient now has normal oxygen saturations on room air. Continue to treat the underlying pneumonia. The patient is COVID 19 negative. 2. Bilateral lobe pneumonia. Will continue with broad-spectrum antibiotics and bronchodilator therapy. 3. Posttraumatic stress disorder. Aware. 4. Sepsis secondary to pneumonia. Continue to treat the underlying infection. 5. Hypothyroidism. Continue on Synthroid. 6. Deep vein thrombosis prophylaxis. Continue on Lovenox. 7. Disposition. Continue with physical therapy. cc: Judith Licea MD MTDD
[2020-02-22] MEDS: SYNTHROID PO SCH (06:16)
[2020-02-22] MEDS: PRILOSEC PO SCH (06:16)
[2020-02-22 06:42] LABS: HEMATOCRIT 34.2 % (42.0-52.0); HEMOGLOBIN 11.3 g/dL (14.0-18.0); MCH 30.1 PG (27-31); MPV 11.3 FL (7.4-10.4); RBC 3.76 XMIL (4.7-6.1); RDW 15.1 % (11.5-14.5); WBC 5.85 X1000 (4.8-10.8)
[2020-02-22 07:12] LABS: AGAP 11; BUN 11 mg/dL (8-22); CALCIUM 8.6 mg/dL (8.8-10.2); CHLORIDE 105 mmol/L (98-107); COSMO 281; CREATININE 0.6 mg/dL (0.7-1.2); ESTIMATED GFR > 60; GLUCOSE 134 mg/dL (70-104); POTASSIUM 3.9 mmol/L (3.5-5.1); SODIUM 140 mmol/L (136-145); TCO2 24 mmol/L (25-35)
[2020-02-22] MEDS: MIRALAX PO SCH (08:11)
[2020-02-22] MEDS: FOLIC ACID PO SCH (08:12)
[2020-02-22] MEDS: DESYREL PO SCH (08:12)
[2020-02-22] MEDS: ZOLOFT PO SCH (08:12)
[2020-02-22] MEDS: ZYRTEC PO SCH (08:12)
[2020-02-22] MEDS: PRINIVIL PO SCH (08:12)
[2020-02-22] MEDS: SEROQUEL PO SCH ×3 (08:12→16:46)
[2020-02-22] MEDS: VANCOMYCIN 2 GM in NS 500 ML IV SCH (14:24)
[2020-02-22] MEDS ORDERED: XANAX PO ONE (16:12)
[2020-02-22 16:26] VITALS: BP 152/69
[2020-02-22] MEDS: ZITHROMAX PO SCH (16:46)
--- NOTE | 2020-02-23 06:53 | DISCHARGE SUMMARY ---
ADMISSION DATE: 02/17/2020 DISCHARGE DATE: 02/22/2020 FINAL DISCHARGE DIAGNOSES: 1. Left upper lobe pneumonia. 2. Acute hypoxemic respiratory failure. 3. Posttraumatic stress disorder. 4. Sepsis secondary to pneumonia. 5. Hypothyroidism. HOSPITAL COURSE: Mr. Ballard is a 74-year-old male with a history of PTSD and hypothyroidism who presented to the ER with a chief complaint of shortness of breath and a dry cough. In the ER, chest x-ray was done that revealed a left upper lobe pneumonia. There was concern about Coronavirus Disease 2019 (COVID-19), so the patient was swabbed and placed on isolation. Blood cultures were obtained. The patient was started on broad-spectrum antibiotics. An influenza swab was also performed that was noted to be negative. Ultimately, the Coronavirus Disease 2019 (COVID- 19) assay came back negative. The patient continued with treatment with IV antibiotics. However, on 02/22/2020, the patient decided that he no longer wanted to stay in the hospital and elected to leave the hospital against medical advice. He spoke with his and stated that he wanted her to come and pick him up. I also spoke to the patient and his ; however, they both insisted on leaving the hospital. The patient was advised that he runs the risk of severe disability and even if he left the hospital before his treatment was complete. Both the patient and his stated that they are willing to take the risk and left the hospital against medical advice. cc: Judith Licea MD
== END 2020-02-22 17:07 | disposition left against medical advice (07) | DRG 871 ==
LOC: SUPCPDRO → ED 16:26 → SUATTDRO 20:07 → 3N 20:07 → 4N 20:21
PROVIDERS: ATTEND Internal Medicine